=== PATIENT | female | born 1960 | race African-American/Black ===

== ENCOUNTER 2020-03-28 16:17 | Emergency (ER) | payer SELFPAY ==
[~2020-03-28] VITALS: Ht 162.6 cm; Wt 74.8 kg
[2020-03-28 17:13] VITALS: BP 152/89
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
--- NOTE | 2020-03-28 17:20 | NUR ---
ED Nurse Note: Pt cleared by health care Provider for discharge. DC instructions/prescription was given and explained to pt and verbalized understanding of teachings. All medical deviecs such as ID band removed. Pt is AAO x4, ambulatory and left with all personal belongings.
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
[2020-03-28] MEDS ORDERED: IBUPROFEN600 M1 ORAL (17:33)
[2020-03-28] MEDS ORDERED: LIDODERM700 M1 TOPIC (17:33)
[2020-03-28] MEDS ORDERED: ROBAXIN-750750 MG PO (17:33)
[2020-03-28 17:50] VITALS: BP 152/89
== END 2020-03-28 17:20 | disposition home or self-care (01) ==
LOC: EMR 17:11
DX: S90.32XA Contusion of left foot, initial encounter (principal); S16.1XXA Strain of muscle, fascia and tendon at neck level, initial encounter; T14.90XA Injury, unspecified, initial encounter; X58.XXXA Exposure to other specified factors, initial encounter; Y92.9 Unspecified place or not applicable; I10 Essential (primary) hypertension
CPT/HCPCS: 99282